=== PATIENT | male | born 1970 | race Caucasian/White ===

== ENCOUNTER 2017-08-28 00:10 | Emergency (ER) | payer OTHER ==
[2017-08-28] MEDS ORDERED: LIDOcaine 1.5% w/epinephrine 1:200,000 5ml ampul IJ ONE (00:35)
[2017-08-28] MEDS ORDERED: sulfamethoxazole/trimethoprim DS (800/160mg) tablet PO ONE (00:35)
[2017-08-28] MEDS ORDERED: iohexol 300mg/ml 100ml inj. ONE (00:39)
[2017-08-28 01:03] LABS: BASOPHILS % (AUTO) 0.5 % (0-1); EOSINOPHILS # (AUTO) 0.1 X10'3 (0-0.9); EOSINOPHILS % (AUTO) 1.6 % (0-6); HEMATOCRIT 48.4 % (42.0-52.0); HEMOGLOBIN 16.3 g/dl (14.0-17.9); LYMPHOCYTES # (AUTO) 1.7 X10'3 (1.1-4.8); LYMPHOCYTES % (AUTO) 23.3 % (21-51); MEAN CORPUSCULAR HEMOGLOBIN 30.9 PG (27.0-31.0); MEAN CORPUSCULAR HGB CONC 33.6 % (33.0-36.5); MEAN CORPUSCULAR VOLUME 91.9 FL (78-98); MEAN PLATELET VOLUME 9.5 FL (7.4-10.4); MONOCYTES # (AUTO) 0.3 X10'3 (0-0.9); MONOCYTES % (AUTO) 4.2 % (2-12); NEUTROPHILS % (AUTO) 70.4 % (42-75); PLATELET COUNT 243 X10'3 (140-440); RED BLOOD COUNT 5.27 X10'6 (4.70-6.10); RED CELL DISTRIBUTION WIDTH 14.1 % (11.5-14.5); WHITE BLOOD COUNT 7.2 X10'3 (4.5-11.0)
[2017-08-28 01:18] LABS: ALANINE AMINOTRANSFERASE 48 U/L (12-78); ALKALINE PHOSPHATASE 164 IU/L (46-116); ANION GAP 13 (8-16); ASPARTATE AMINO TRANSFERASE 29 U/L (10-37); BILIRUBIN,TOTAL 0.5 MG/DL (0.1-1.0); BLOOD UREA NITROGEN 9 MG/DL (7-18); BUN/CREATININE RATIO 8.5 (5.4-32.0); CALCIUM 9.3 MG/DL (8.5-10.1); CHLORIDE 105 MMOL/L (99-107); CREATININE 1.06 MG/DL (0.60-1.10); ETHANOL 0.213 GM/DL (0.0-0.010); GLUCOSE 102 MG/DL (70-104); SODIUM 145 MMOL/L (135-145); TOTAL CARBON DIOXIDE 26.8 MMOL/L (24-32); TOTAL PROTEIN 8.2 G/DL (6.4-8.2); eGFR 75 ML/MIN
[2017-08-28] MEDS ORDERED: SULF1TAB49 PO (01:58)
[2017-08-28 02:35] VITALS: BP 115/70
== END 2017-08-28 02:37 | disposition home or self-care (01) ==
LOC: ER 00:11 → EDBD 00:11 → ER 02:37
DX: L02.416 Cutaneous abscess of left lower limb (principal); F10.129 Alcohol abuse with intoxication, unspecified; R10.10 Upper abdominal pain, unspecified; Z02.89 Encounter for other administrative examinations; V47.5XXA Car driver injured in collision with fixed or stationary object in traffic accident, initial encounter; Y93.89 Activity, other specified; Y92.410 Unspecified street and highway as the place of occurrence of the external cause; Y99.8 Other external cause status
CPT/HCPCS: 10060; 36415; 70450; 71010; 71260; 72125; 74177; 80053; 80320; 85025; 99285; A6255; A6257; A6266; J3490; Q9967; A6449